=== PATIENT | female | born 2005 | race Caucasian/White ===

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

== ENCOUNTER 2023-01-28 11:25 | Emergency (ER) | payer OTHER ==
[~2023-01-28] VITALS: Ht 165.1 cm; Wt 129.4 kg
[2023-01-28 11:52] VITALS: BP 135/99; PULSE 89; RESP 20; TEMP 97.7; O2SAT 95
[2023-01-28] MEDS ORDERED: ONDANSETRON 4 MG ODT PO ONE (12:35)
[2023-01-28] MEDS ORDERED: IBUPROFEN 800 MG TAB PO ONE (12:35)
[2023-01-28] MEDS ORDERED: HYDROcodone/APAP 7.5/325 MG 1 TAB PO ONE (12:35)
[2023-01-28] MEDS ORDERED: ACET-8905 PO (13:37)
[2023-01-28] MEDS ORDERED: IBUP-2213 PO (13:37)
== END 2023-01-28 13:45 | disposition home or self-care (01) ==
LOC: MED 11:25
DX: M54.9 Dorsalgia, unspecified (principal); G89.29 Other chronic pain; J45.909 Unspecified asthma, uncomplicated; Z79.899 Other long term (current) drug therapy
CPT/HCPCS: 81002; 81025; 99284; Q0162